=== PATIENT | female | born 1995 | race Caucasian/White ===

== ENCOUNTER → 2021-02-04 | Outpatient (CLI) | payer OTHER ==
[~2021-02-04] MED LIST: IBUPROFEN800 MG PO; PERCOCET 5/325 T1 EA PO
== END ==
LOC: KOH-I 15:23
DX: M41.9 Scoliosis, unspecified (principal); M47.816 Spondylosis without myelopathy or radiculopathy, lumbar region; M51.36 Other intervertebral disc degeneration, lumbar region
CPT/HCPCS: 72100; 73522

== ENCOUNTER → 2021-02-19 | Outpatient (CLI) | payer OTHER | LOC: CT 10:47 | DX: R31.9 Hematuria, unspecified (principal); N83.8 Other noninflammatory disorders of ovary, fallopian tube and broad ligament | CPT/HCPCS: 36415; 82565; 84520; Q9963; Q9967 ==

== ENCOUNTER 2021-03-15 03:22 | Emergency (ER) | payer OTHER ==
[2021-03-15 06:50] LABS: HEMOGLOBIN 13.6 gm/dl (12.3-15.3); RED BLOOD COUNT 4.85 M/UL (4.00-5.10); WHITE BLOOD COUNT 8.8 K/UL (4.5-11.0)
[2021-03-15 07:18] LABS: BUN/CREATININE RATIO 21 (0-10)
== END 2021-03-15 09:04 | disposition home or self-care (01) ==
LOC: ER1 03:22
PROVIDERS: Student in an Organized Health Care Education/Training Program
DX: M25.512 Pain in left shoulder (principal); R07.89 Other chest pain; I25.10 Atherosclerotic heart disease of native coronary artery without angina pectoris; Z79.899 Other long term (current) drug therapy
CPT/HCPCS: 71046; 73030; 80053; 82550; 82553; 83874; 84484; 84702; 85025; 93005; 99285

== ENCOUNTER → 2021-09-30 | Outpatient (CLI) | payer OTHER | LOC: US 07:36 → KOH-I 10:00 | DX: R10.33 Periumbilical pain (principal); K76.0 Fatty (change of) liver, not elsewhere classified | CPT/HCPCS: 36415; 76705; 80076; 82150; 83690 ==